=== PATIENT | male | born 1965 | race Caucasian/White ===

== ENCOUNTER 2020-08-05 09:39 | Emergency (ER) | payer SELFPAY ==
[~2020-08-05] VITALS: Ht 188 cm; Wt 90.7 kg
[2020-08-05] MEDS ORDERED: Bacitracin Oint UD TOPIC ONE (10:00)
[2020-08-05] MEDS ORDERED: Acetaminophen 500mg (ES) tab ORAL ONE (10:00)
--- NOTE | 2020-08-05 10:03 | Emergency Room Report ---
History of Present Illness General Chief Complaint: Lower Extremity Injury Source: Patient Present Illness HPI Patient fell 10 ft from his roof. He tried to hold on and scraped his abdomen. He landed on his right foot. He was able to walk on it for a time but then after resting was unable to walk. Ankle is swollen. He rates the pain 8-9/10 at this time. There is no numbness. He has been using crutches. Patient believes his tetanus is up-to-date. He denies back pain or knee pain or hip pain. He did not lose consciousness. Patient denies exposure to Covid positive contacts. Allergies: Coded Allergies: No Known Allergies (Verified Allergy, Unknown, 05/09/06) COVID-19 Screening Contact w/high risk pt: No Experienced COVID-19 symptoms?: No COVID-19 Testing performed NIGHT FILLER: No Patient History Past Medical History: see triage record Social History: Denies: smoking, alcohol use, drug use Social History Narrative working -drove himself here Reviewed Nursing Documentation: PMH: Agreed; PSxH: Agreed Nursing Documentation-PMH Past Medical History: No Stated History Review of Systems Constitutional: Denies: fever ENT: Denies: throat pain Respiratory: Reports: cough; Denies: shortness of breath Cardiovascular: Denies: chest pain Gastrointestinal: Denies: abdominal pain Musculoskeletal: Reports: see HPI Skin: Reports: see HPI Neurological: Reports: see HPI Physical Exam Vital Signs Date Time Temp Pulse Resp B/P (MAP) Pulse Ox O2 Delivery O2 Flow Rate FiO2 08/05/20 09:43 98.2 95 16 119/73 (88) 98 Room Air Sp02 EP Interpretation: reviewed, normal General Appearance: well appearing, no apparent distress, GCS 15 Head: normocephalic, atraumatic Eyes: bilateral eye normal inspection, bilateral eye PERRL, bilateral eye EOMI ENT: moist mucus membranes Neck: normal inspection, full range of motion Respiratory: chest non-tender Cardiovascular #1: regular rate, rhythm Cardiovascular #2: 2+ radial (R), 2+ dorsalis pedis (R) - Good capillary fill Gastrointestinal: normal inspection, non tender Musculoskeletal: swelling - Bilateral ankle and dorsum of foot, tenderness - Ankle bilateral malleoli with intact ligaments Neurologic: alert, distal neuro normal, grossly normal Skin: normal color, no rash, warm/dry Medical Decision Making Diagnostic Impression: Primary Impression: Closed right ankle fracture Qualified Codes: S82.891A - Other fracture of right lower leg, initial encounter for closed fracture ER Course Patient fell 10 ft onto his right foot. Differential includes fracture, contusion or sprain. Suspicion of fracture is high based on exam. X-rays indicated. In addition patient will be treated with Motrin and Tylenol and bacitracin applied to the wounds. Right ankle: Old fractures. Possible fracture in mortar. Splint applied by tech. Position excellent and neurovasc normal as checked by me. Discussed findings with patient and the need for outpatient follow-up. Patient stable for outpatient observation and treatment. Other X-Ray Diagnostic Results Other X-Ray Diagnostic Results : X-Ray ordered: R ankle # of Views/Limited Vs Complete: 3 View Indication: Other Interpretation: no dislocation, other - old fractures and line in mortar Impression: Other Electronically Signed by: Electronically signed by Bubba Palomo MD Last Vital Signs Date Time Temp Pulse Resp B/P (MAP) Pulse Ox O2 Delivery O2 Flow Rate FiO2 08/05/20 11:23 98.2 08/05/20 11:20 74 16 120/74 98 Room Air Status: improved Disposition: HOME, SELF-CARE Condition: Improved Scripts Ibuprofen* (MOTRIN*) 600 Mg Tablet 600 MG ORAL Q6H PRN for FOR PAIN, #20 TAB 0 Refills Prov: Bubba Palomo MD 08/05/20 Bubba Palomo MD Aug 05, 2020 10:03
[2020-08-05] MEDS ORDERED: IBUPROFEN600 M1 ORAL (10:59)
[2020-08-05 11:20] VITALS: BP 120/74
--- NOTE | 2020-08-05 11:20 | NUR ---
ED Nurse Note:posterior splint was placed on right ankle per ER MD order Pt cleared by health care Provider for discharge. DC instructions/prescription was given and explained to pt and verbalized understanding of teachings. All medical deviecs such as ID band removed. Pt is AAO x4, ambulatory and left with all personal belongings.
--- NOTE | 2020-08-05 13:41 | Diagnostic Imaging Report ---
Indication: Pain, trauma Technique: 3 views of the right ankle Comparison: none Findings: No acute fracture. No dislocation. Joint spaces are preserved. An unfused ossicle seen at the tip of the fibula. Impression: Negative
== END 2020-08-05 11:20 | disposition home or self-care (01) ==
LOC: EMR 10:52
DX: S82.891A Other fracture of right lower leg, initial encounter for closed fracture (principal); W17.89XA Other fall from one level to another, initial encounter; Y92.9 Unspecified place or not applicable
CPT/HCPCS: 99283